=== PATIENT | male | born 1955 | race Caucasian/White ===

== ENCOUNTER 2020-11-10 10:27 | Outpatient (CLI) | payer OTHER | END 2020-11-10 10:47 | disposition home or self-care (01) | LOC: RAD 10:27 | PROVIDERS: ATTEND Specialist | DX: J45.998 Other asthma (principal); R07.89 Other chest pain ==

== ENCOUNTER 2021-11-30 11:14 | Outpatient (CLI) | payer OTHER | END 2021-11-30 11:15 | disposition home or self-care (01) | LOC: LAB 11:14 | PROVIDERS: ATTEND Specialist | DX: E11.69 Type 2 diabetes mellitus with other specified complication (principal); E03.8 Other specified hypothyroidism; D64.89 Other specified anemias; N39.9 Disorder of urinary system, unspecified; M00.80 Arthritis due to other bacteria, unspecified joint; N39.0 Urinary tract infection, site not specified; Z13.220 Encounter for screening for lipoid disorders ==

== ENCOUNTER 2021-12-03 09:01 | Outpatient (CLI) | payer OTHER | END 2021-12-03 09:05 | disposition home or self-care (01) | LOC: TOM 09:01 | PROVIDERS: ATTEND Specialist | DX: K40.40 Unilateral inguinal hernia, with gangrene, not specified as recurrent (principal) ==

== ENCOUNTER 2021-12-28 10:36 | Outpatient (CLI) | payer OTHER | END 2021-12-28 10:47 | disposition home or self-care (01) | LOC: SONOGRAMA 10:36 | PROVIDERS: ATTEND Surgery | DX: K40.90 Unilateral inguinal hernia, without obstruction or gangrene, not specified as recurrent (principal) ==

== ENCOUNTER → 2022-01-02 11:01 | Outpatient (CLI) | payer OTHER | END | disposition home or self-care (01) | LOC: LAB 11:01 | PROVIDERS: ATTEND Radiology Diagnostic Radiology | DX: K40.90 Unilateral inguinal hernia, without obstruction or gangrene, not specified as recurrent (principal) ==

== ENCOUNTER 2022-01-03 10:41 | Outpatient (CLI) | payer OTHER | END 2022-01-03 11:04 | disposition home or self-care (01) | LOC: MRI 10:41 | PROVIDERS: ATTEND Surgery | DX: K40.90 Unilateral inguinal hernia, without obstruction or gangrene, not specified as recurrent (principal) | CPT/HCPCS: 72196 ==

== ENCOUNTER 2022-02-06 11:02 | Outpatient (CLI) | payer OTHER | END 2022-02-06 11:15 | disposition home or self-care (01) | LOC: SONOGRAMA 11:02 | PROVIDERS: ATTEND Surgery | DX: R10.31 Right lower quadrant pain (principal) ==

== ENCOUNTER 2024-02-23 16:13 | Outpatient (CLI) | payer OTHER ==
[2024-02-23 17:44] LABS: URINE APPEARANCE Clear; URINE BILIRRUBIN Negative (NEGATIVE); URINE BLOOD Negative; URINE COLOR Yellow; URINE GLUCOSE Negative (NEGATIVE); URINE KETONE Trace (NEGATIVE); URINE LEUKOCYTE Negative; URINE NITRATE Negative; URINE PROTEIN Negative (NEGATIVE); URINE UROBILINOGEN 0.2 E.U./dl
[2024-02-23 17:45] LABS: HEMATOCRIT 45.1 % (39.0-48.0); HEMOGLOBIN 15.4 g/dL (13-16.00); MEAN CELL VOLUME 89.7 fL (80.0-100.00); MEAN CORPUSCULAR HEMOGLOBIN 30.6 pg (27.00-32.0); MEAN CORPUSCULAR HGB CONC 34.1 g/dl (32.0-36.0); PLATELET COUNT 195 K/uL (150-450); RED BLOOD COUNT 5.03 M/uL (4.00-6.00); RED CELL DISTRIBUTION WIDTH 12.9 % (11.5-14.5); URINE BACTERIA 26.9 uL (0.0-1933); URINE EPITHELIAL CELLS 1.7 uL (0.0-38.8); URINE RBC 6.9 uL (0.0-20.8); URINE WBC 6.6 uL (0.0-23.2)
[2024-02-23 21:06] LABS: ERYTHROCYTE SEDIMENTATION RATE < 1 mm/hr
== END 2024-02-23 16:24 | disposition home or self-care (01) ==
LOC: LAB 16:13
PROVIDERS: ATTEND Specialist
DX: N39.9 Disorder of urinary system, unspecified (principal); D64.9 Anemia, unspecified; J45.998 Other asthma; M35.3 Polymyalgia rheumatica

== ENCOUNTER 2024-02-24 10:49 | Outpatient (CLI) | payer OTHER | END 2024-02-24 10:53 | disposition home or self-care (01) | LOC: TOM 10:49 | PROVIDERS: ATTEND Specialist | DX: K40.30 Unilateral inguinal hernia, with obstruction, without gangrene, not specified as recurrent (principal); K40.00 Bilateral inguinal hernia, with obstruction, without gangrene, not specified as recurrent ==

== ENCOUNTER → 2024-03-23 | Outpatient (CLI) | payer OTHER | END | disposition home or self-care (01) | LOC: RAD 11:29 | PROVIDERS: ATTEND Urology | DX: N20.0 Calculus of kidney (principal) ==

== ENCOUNTER 2024-03-25 09:44 | Outpatient (CLI) | payer OTHER ==
[2024-03-25 10:44] LABS: URINE BILIRRUBIN Negative (NEGATIVE); URINE BLOOD Negative; URINE COLOR Yellow; URINE GLUCOSE Negative (NEGATIVE); URINE KETONE Negative (NEGATIVE); URINE LEUKOCYTE Negative; URINE NITRATE Negative; URINE PROTEIN Negative (NEGATIVE); URINE UROBILINOGEN 0.2 E.U./dl
[2024-03-25 10:48] LABS: URINE RBC 2.2 uL (0.0-20.8)
[2024-03-25 11:02] LABS: URINE APPEARANCE CLEAR; URINE EPITHELIAL CELLS 0.6 uL (0.0-38.8)
[2024-03-25 11:17] LABS: ALBUMIN 3.9 gm/dL (3.4-5.0); BILIRUBIN TOTAL 0.5 mg/dL (0.3-1.2); CREATININE SERUM 0.96 mg/dL (0.70-1.30); GFR 78.37; POTASSIUM 4.62 mEq/L (3.5-5.1); PROSTATIC SPECIFIC ANTIGEN 0.48 NG/ML (0.010-4.00); TOTAL PROTEIN 6.9 gm/dL (6.4-8.2); URIC ACID 5.8 mg/dL (3.5-8.5)
== END 2024-03-25 13:10 | disposition home or self-care (01) ==
LOC: LAB 09:44
PROVIDERS: ATTEND Urology
DX: N20.0 Calculus of kidney (principal); N40.1 Benign prostatic hyperplasia with lower urinary tract symptoms

== ENCOUNTER 2024-07-01 08:23 | Outpatient (CLI) | payer OTHER | END 2024-07-01 08:36 | disposition home or self-care (01) | LOC: RAD 08:23 | PROVIDERS: ATTEND Urology | DX: N40.1 Benign prostatic hyperplasia with lower urinary tract symptoms (principal); N20.0 Calculus of kidney ==

== ENCOUNTER 2025-02-16 10:19 | Outpatient (CLI) | payer OTHER | END 2025-02-16 10:21 | disposition home or self-care (01) | LOC: RAD 10:19 | DX: N20.0 Calculus of kidney (principal) ==

== ENCOUNTER 2025-02-16 16:45 | Outpatient (CLI) | payer OTHER ==
[2025-02-16 17:05] LABS: BASO % 0.7 % (0.1-1.2); EOS # 0.30 (0.04-0.54); EOS % 5.4 % (0.7-7.0); LYMPH # 0.97 (1.18-3.74); LYMPH % 17.6 % (19.3-53.1); MEAN PLATELET VOLUME 10.20 fl (9.4-12.4); MONO # 0.89 (0.24-0.82); NEUT # 3.27 (1.56-6.13); NEUT % 59.4 % (34.0-71.1); RED CELL DISTRIBUTION WIDTH 11.6 % (11.6-14.4)
[2025-02-16 17:07] LABS: MONO % 16.2 % (4.7-12.5)
[2025-02-16 17:15] LABS: ERYTHROCYTE SEDIMENTATION RATE 8 mm/hr (0-20)
== END 2025-02-16 17:03 | disposition home or self-care (01) ==
LOC: LAB 16:45
PROVIDERS: ATTEND Specialist
DX: N40.1 Benign prostatic hyperplasia with lower urinary tract symptoms (principal); D40.0 Neoplasm of uncertain behavior of prostate; D64.9 Anemia, unspecified; M35.3 Polymyalgia rheumatica; R79.82 Elevated C-reactive protein (CRP)

== ENCOUNTER → 2025-02-16 | Emergency (ER) | payer OTHER ==
[~2025-02-16] VITALS: Ht 182.9 cm; Wt 81.2 kg
[2025-02-16 21:16] LABS: BASO % 0.7 % (0.1-1.2); EOS # 0.36 (0.04-0.54); EOS % 6.7 % (0.7-7.0); LYMPH # 1.17 (1.18-3.74); LYMPH % 21.9 % (19.3-53.1); MEAN PLATELET VOLUME 10.10 fl (9.4-12.4); MONO # 0.95 (0.24-0.82); NEUT # 2.80 (1.56-6.13); NEUT % 52.5 % (34.0-71.1); RED CELL DISTRIBUTION WIDTH 11.6 % (11.6-14.4)
[2025-02-16 21:18] LABS: MONO % 17.8 % (4.7-12.5)
== END | disposition home or self-care (01) ==
LOC: ER 17:06
PROVIDERS: General Practice
DX: I20.89 Other forms of angina pectoris (principal); R07.89 Other chest pain